=== PATIENT | female | born 1960 | race Caucasian/White ===

== ENCOUNTER → 2016-09-16 | Outpatient (CLI) | payer BC | END | disposition home or self-care (01) | LOC: CFH 12:47 | PROVIDERS: ATTEND Obstetrics & Gynecology | DX: N63 Unspecified lump in breast (principal); Z85.3 Personal history of malignant neoplasm of breast | CPT/HCPCS: 76642; G0204 ==

== ENCOUNTER → 2016-10-28 | Outpatient (CLI) | payer BC ==
[~2016-10-28] MED LIST: GADOBUTROL 7.5 MMOL/7.5 ML VIAL ONE
== END | disposition home or self-care (01) ==
LOC: CFH 12:20
PROVIDERS: ATTEND Nurse Practitioner Primary Care
DX: M25.561 Pain in right knee (principal); H53.9 Unspecified visual disturbance; J32.0 Chronic maxillary sinusitis; G89.29 Other chronic pain; E78.2 Mixed hyperlipidemia; E55.9 Vitamin D deficiency, unspecified; F06.4 Anxiety disorder due to known physiological condition; H53.003 Unspecified amblyopia, bilateral
CPT/HCPCS: 70553; 73564; A9585

== ENCOUNTER → 2017-09-19 | Outpatient (CLI) | payer BC | END | disposition home or self-care (01) | LOC: CFH 10:01 | PROVIDERS: ATTEND Internal Medicine | DX: Z12.31 Encounter for screening mammogram for malignant neoplasm of breast (principal); Z80.3 Family history of malignant neoplasm of breast | CPT/HCPCS: 77063; 77067 ==

== ENCOUNTER → 2020-02-08 | Outpatient (CLI) | payer BC | END | disposition home or self-care (01) | LOC: CFH 07:18 | PROVIDERS: ATTEND Obstetrics & Gynecology | DX: Z12.31 Encounter for screening mammogram for malignant neoplasm of breast (principal) | CPT/HCPCS: 77063; 77067 ==

== ENCOUNTER → 2020-06-03 | Outpatient (CLI) | payer BC ==
[~2020-06-03] MED LIST changes: +ASCO100018 PO; +CHOL10003 PO; +CYCL-259 PO; +EZET10TA70 PO; -GADOBUTROL 7.5 MMOL/7.5 ML VIAL ONE; +KETO5DRO77 EACHEYE; +LINA145C PO; +LOSA25TA25 PO; +MAGNESIUM PO; +NITR100C57 PO; +OMEG1CAP34 PO; +OMEP40CA42 PO; +POTASSIUM PO; +VALA10007 PO; +ZINC PO; +[UNRECOGNIZED DRUG - CODE] PO
== END | disposition home or self-care (01) ==
LOC: STAR 08:00
PROVIDERS: ATTEND Surgery
DX: Z20.828 Contact with and (suspected) exposure to other viral communicable diseases (principal)
CPT/HCPCS: 87635

== ENCOUNTER 2020-06-09 07:35 | Inpatient (IN) | payer BC ==
[~2020-06-09] VITALS: Ht 165.1 cm; Wt 76.0 kg
[2020-06-09] MEDS ORDERED: LACTATED RINGERS 1,000 ML IV SCH (08:00)
[2020-06-09] MEDS ORDERED: CHLORHEXIDINE 15 ML UDC MM ONE (08:00)
[2020-06-09] MEDS ORDERED: CHLORHEXIDINE 15 ML UDC ONE (08:02)
[2020-06-09] MEDS ORDERED: FENTANYL PF 250 MCG/5ML ONE (10:48)
[2020-06-09] MEDS ORDERED: MIDAZOLAM 1 MG/ML, 2ML ONE (10:48)
[2020-06-09] MEDS ORDERED: DEXAMETHASONE 4 MG/ML, 1ML ONE (11:34)
[2020-06-09] MEDS ORDERED: CEFAZOLIN 1,000 MG ONE (11:34)
[2020-06-09] MEDS ORDERED: SUCCINYLCHOLINE 20 MG/ML, 10ML ONE (11:34)
[2020-06-09] MEDS ORDERED: ONDANSETRON 2MG/ML, 2ML ONE (11:34)
[2020-06-09] MEDS ORDERED: PROPOFOL 10 MG/ML, 20ML ONE (11:34)
[2020-06-09] MEDS ORDERED: ROCURONIUM 10MG/ML,5ML ONE (11:34)
[2020-06-09] MEDS ORDERED: OXYcodone 5 MG/5 ML ORAL.SOL UDC PO PRN (12:30)
[2020-06-09] MEDS ORDERED: HYDROmorphone 1 MG/ML, 1ML INJ IV PRN (12:30)
[2020-06-09] MEDS ORDERED: ONDANSETRON 2MG/ML, 2ML IVPush PRN (12:30)
[2020-06-09] MEDS ORDERED: METOCLOPRAMIDE 5 MG/ML, 2ML IV PRN (12:30)
[2020-06-09] MEDS ORDERED: PROMETHAZINE 25 MG/ML, 1ML IV PRN (12:30)
[2020-06-09] MEDS ORDERED: hydrALAzine 20 MG/ML, 1ML IV PRN (12:30)
[2020-06-09] MEDS ORDERED: MEPERIDINE/PF 25MG/0.5ML IVPush PRN (12:30)
[2020-06-09] MEDS ORDERED: KETOROLAC 30 MG/1 ML IV PRN (12:30)
[2020-06-09] MEDS ORDERED: ALBUTEROL SULFATE 2.5 MG/3 ML NPPB PRN (12:30)
[2020-06-09] MEDS ORDERED: DIAZEPAM 5 MG/ML, 2ML IV PRN ×2 (12:30)
[2020-06-09] MEDS ORDERED: LABETALOL 5MG/ML, 20ML IV PRN (12:30)
[2020-06-09] MEDS ORDERED: FENTANYL PF 100 MCG/2ML ONE (13:14)
[2020-06-09] MEDS: FENTANYL PF 100 MCG/2ML IV PRN ×2 (13:15→13:25)
[2020-06-09] MEDS ORDERED: OXYcodone 5 MG/5 ML ORAL.SOL UDC ONE (13:26)
[2020-06-09 14:25] VITALS: BP 149/91
[2020-06-09] MEDS ORDERED: MORPHINE SULFATE 4 MG/ML, 1ML ONE (14:47)
[2020-06-09] MEDS: morphine SULFATE 10 MG/ML, 1ML IV PRN ×4 (14:53→20:59)
[2020-06-09] MEDS ORDERED: ONDANSETRON 2MG/ML, 2ML IV PRN (15:00)
[2020-06-09] MEDS: LOSARTAN 25MG TABLET PO SCH (17:48)
[2020-06-09] MEDS: HYDROcodone/APAP 5/325 TABLET PO PRN (17:49)
[2020-06-09] MEDS: LACTATED RINGERS 1,000 ML IV SCH (17:54)
[2020-06-09 18:58] LABS: ALBUMIN 3.7 g/dL (3.4-5.0); CALCIUM 8.8 mg/dL (8.5-10.1)
[2020-06-09 19:40] VITALS: BP 125/80
[2020-06-09] MEDS: KETOROLAC OPHTH 0.5%, 5ML OP SCH (21:00)
[2020-06-10 00:37] VITALS: BP 103/66
[2020-06-10] MEDS ORDERED: CYCLOBENZAPRINE 10 MG TABLET PO PRN (01:00)
[2020-06-10 01:27] LABS: ALBUMIN 3.4 g/dL (3.4-5.0); CALCIUM 8.6 mg/dL (8.5-10.1)
[2020-06-10] MEDS: HYDROcodone/APAP 5/325 TABLET PO PRN (02:51)
[2020-06-10 04:26] VITALS: BP 102/62
[2020-06-10] MEDS ORDERED: OMEPRAZOLE 20 MG CAPSULE.DR PO SCH (06:00)
[2020-06-10] MEDS: KETOROLAC OPHTH 0.5%, 5ML OP SCH (06:16)
[2020-06-10] MEDS: LACTATED RINGERS 1,000 ML IV SCH (06:20)
[2020-06-10 06:44] LABS: ALBUMIN 3.4 g/dL (3.4-5.0)
[2020-06-10 07:10] VITALS: BP 114/73
[2020-06-10] MEDS ORDERED: LEVO125T PO (08:51)
[2020-06-10] MEDS ORDERED: HYDR-3240 PO (08:53)
[2020-06-10] MEDS ORDERED: CHOLECALCIFEROL 1,000 UNIT TABLET PO SCH (09:00)
[2020-06-10] MEDS ORDERED: ASCORBIC ACID 500 MG TABLET PO SCH (09:00)
[2020-06-10] MEDS ORDERED: CYANOCOBALAMIN 1,000 MCG TABLET PO SCH (09:00)
[2020-06-10] MEDS ORDERED: EZETIMIBE 10 MG TABLET PO SCH (09:00)
[2020-06-10] MEDS ORDERED: ZINC SULFATE 220 MG CAPSULE PO SCH (09:00)
[2020-06-10] MEDS ORDERED: MAGNESIUM OXIDE 400 MG TABLET PO SCH (09:00)
[2020-06-10] MEDS ORDERED: OMEGA-3/FISH OIL CAPSULE PO SCH (09:00)
[2020-06-10] MEDS: LOSARTAN 25MG TABLET PO SCH (09:42)
== END 2020-06-10 11:21 | disposition home or self-care (01) | DRG 627 ==
LOC: OR 07:35 → 4NE 14:15 → OR 14:20 → DCLOUNGE 06-10 11:08
PROVIDERS: ADMIT Surgery; ATTEND Surgery
PROC: 07T20ZZ Resection of Left Neck Lymphatic, Open Approach (ICD-10-PCS; 2020-06-09)
PROC: 07T10ZZ Resection of Right Neck Lymphatic, Open Approach (ICD-10-PCS; 2020-06-09)
PROC: 0GTH0ZZ Resection of Right Thyroid Gland Lobe, Open Approach (ICD-10-PCS; 2020-06-09)
PROC: 0GTG0ZZ Resection of Left Thyroid Gland Lobe, Open Approach (ICD-10-PCS; 2020-06-09)
PROC: 0GTJ0ZZ Resection of Thyroid Gland Isthmus, Open Approach (ICD-10-PCS; 2020-06-09)
PROC: 0GTK0ZZ Resection of Thyroid Gland, Open Approach (ICD-10-PCS; principal; 2020-06-09 10:30)
DX: C73 Malignant neoplasm of thyroid gland (principal)
CPT/HCPCS: 36415; 82040; 82310; 88305; 88307; G0378; J0690; J1100; J2250; J2405; J2704; J3010; C1760; J0330; J2270; J7120

== ENCOUNTER → 2021-03-04 | Outpatient (CLI) | payer BC ==
[~2021-03-04] MED LIST changes: -CYCL-259 PO; +CYCL10TA2 PO; +HYDR-2214 PO; +LEVO125T PO; -OMEP40CA42 PO; +OMEP40CA8 PO
== END | disposition home or self-care (01) ==
LOC: CFH 10:52
PROVIDERS: ATTEND Nurse Practitioner Primary Care
DX: Z12.31 Encounter for screening mammogram for malignant neoplasm of breast (principal)
CPT/HCPCS: 77063; 77067